=== PATIENT | female | born 1975 | race Caucasian/White ===

== ENCOUNTER 2017-10-30 12:15 | Emergency (ER) | payer SELFPAY ==
[~2017-10-30] VITALS: Ht 154.9 cm; Wt 65.0 kg
[~2017-10-30 12:15] MED LIST: AVELOX400 MG OR; CIPRO500 MG OR; LORTAB5 OR; NAPROSYN500 MG OR; NO HOME MEDS; NYQUIL OR; TAMIFLU12 MG/ML OR; ULTRAM50 M1 PO; ZOFRAN ODT4 MG OR
[2017-10-30] MEDS ORDERED: DELTASONE20 MG PO (13:32)
[2017-10-30] MEDS ORDERED: TORADOL PO (13:32)
[2017-10-30 13:53] VITALS: BP 122/86
== END 2017-10-30 13:53 | disposition home or self-care (01) | DRG 563 ==
LOC: ED 12:15
DX: S29.011A Strain of muscle and tendon of front wall of thorax, initial encounter (principal); F17.210 Nicotine dependence, cigarettes, uncomplicated; X50.0XXA Overexertion from strenuous movement or load, initial encounter

== ENCOUNTER 2019-07-22 | Day surgery (SDC) | payer BC ==
[~2019-07-22] MED LIST changes: +DELTASONE20 MG PO; +TORADOL PO
[2019-07-22 12:00] LABS: HEMATOCRIT 42.8 % (37.0-47.0); IMMATURE GRANULOCYTES 0.2 % (0.0-5.0); MEAN CELL VOLUME 91.5 fL CALC (80.0-100.0); MEAN CORPUSCULAR HGB 30.6 pG CALC (26.0-32.0); MEAN CORPUSCULAR HGB CONC 33.4 g/L CALC (32.0-36.0); NEUT# 3.27 thou/uL (2.00-7.15); RED BLOOD COUNT 4.68 mill/uL (4.20-5.60); RED CELL DISTRI WIDTH 12.4 % (11.5-15.5)
[2019-07-22 12:02] LABS: HEMOGLOBIN 14.3 g/dl (12.0-16.0)
[2019-07-22] MEDS ORDERED: ARAVA20 MG PO (12:34)
[2019-07-22] MEDS ORDERED: ATORVASTATIN CA10 MG PO (12:35)
[2019-07-22] MEDS ORDERED: BUPROPION150 M4 PO (12:35)
[2019-07-22] MEDS ORDERED: TOPIRAMATE50 MG PO (12:35)
[2019-07-22] MEDS ORDERED: TRAMADOL HCL50 MG PO (12:36)
[2019-07-22] MEDS ORDERED: OMEPRAZOLE DR40 MG PO (12:36)
[2019-07-22] MEDS ORDERED: ZOFRAN4 MG/TAB PO (12:37)
[2019-07-22] MEDS ORDERED: FIORICET PO (12:37)
[2019-07-22] MEDS ORDERED: AIMOVIG70 MG/ML IM (12:38)
[2019-07-22] MEDS ORDERED: CENTRUM ADULTS1 TAB PO (12:38)
== END 2019-07-22 14:28 | disposition home or self-care (01) | DRG 921 ==
PROVIDERS: Obstetrics & Gynecology
PROC: 0UQG7ZZ Repair Vagina, Via Natural or Artificial Opening (ICD-10-PCS; principal; 2019-07-22)
DX: T81.32XA Disruption of internal operation (surgical) wound, not elsewhere classified, initial encounter (principal); Y83.6 Removal of other organ (partial) (total) as the cause of abnormal reaction of the patient, or of later complication, without mention of misadventure at the time of the procedure; Z90.710 Acquired absence of both cervix and uterus

== ENCOUNTER 2022-07-05 06:55 | Inpatient (IN) | payer BC ==
[~2022-07-05] VITALS: Ht 154.9 cm; Wt 53.1 kg
[2022-07-05] VITALS (8 sets, daily range): BP systolic 97–111; BP diastolic 59–76
[~2022-07-05 06:55] MED LIST changes: +AIMOVIG70 MG/ML IM; +AJOVY IN; +ARAVA20 MG PO; +ATORVASTATIN CA10 MG PO; +BUPROPION150 M4 PO; +CENTRUM ADULTS1 TAB PO; +FIORICET PO; +HYDROCODONE BIT PO; +LYRICA75 MG PO; +OMEPRAZOLE DR40 MG PO; +TOPIRAMATE50 MG PO; +TRAMADOL HCL50 MG PO; +ZOFRAN4 MG/TAB PO
[2022-07-05 14:02] LABS: ANION GAP 11 (6-22 (CALC)); BUN 14 mg/dL (7-17); BUN/CREATININE RATIO 20 (12-20 (CALC)); CARBON DIOXIDE 24 mmol/l (22-30); CHLORIDE 109 mmol/l (95-108); CREATININE 0.7 mg/dL (0.5-1.0); GFR FOR AFR.AMER. > 60 ML/MIN (>=60 (CALC)); GFR OTHER RACES > 60 ML/MIN (>=60 (CALC)); POTASSIUM 4.3 mmol/l (3.5-5.1); SODIUM 140 mmol/l (137-146)
[2022-07-06] VITALS (18 sets, daily range): BP systolic 78–121; BP diastolic 61–76
[2022-07-06 06:10] LABS: ANION GAP 6 (6-22 (CALC)); BUN 16 mg/dL (7-17); BUN/CREATININE RATIO 18 (12-20 (CALC)); CARBON DIOXIDE 26 mmol/l (22-30); CHLORIDE 110 mmol/l (95-108); CREATININE 0.9 mg/dL (0.5-1.0); GFR FOR AFR.AMER. > 60 ML/MIN (>=60 (CALC)); GFR OTHER RACES > 60 ML/MIN (>=60 (CALC)); MAGNESIUM 2.1 mg/dL (1.6-2.3); POTASSIUM 4.2 mmol/l (3.5-5.1); SODIUM 138 mmol/l (137-146)
[2022-07-06 06:11] LABS: MEAN CELL VOLUME 95.5 fL CALC (80.0-100.0); MEAN CORPUSCULAR HGB 31.5 pG CALC (26.0-32.0); RED BLOOD COUNT 3.75 mill/uL (4.20-5.60)
[2022-07-06 06:13] LABS: HEMATOCRIT 35.8 % (37.0-47.0); HEMOGLOBIN 11.8 g/dl (12.0-16.0)
[2022-07-07 04:02] VITALS: BP 108/59
[2022-07-07 06:40] VITALS: BP 106/53
[2022-07-07] MEDS ORDERED: BACTRIM DS1 TAB PO (09:43)
[2022-07-07] MEDS ORDERED: OXYCODONE10 M1 PO (09:44)
== END 2022-07-07 13:27 | disposition home or self-care (01) | DRG 904 ==
LOC: ORM 06:55 → ICU 11:24 → MS2 07-06 18:34
PROVIDERS: Podiatrist Foot & Ankle Surgery; ADMIT Internal Medicine; ATTEND Internal Medicine
PROC: 0SPM04Z Removal of Internal Fixation Device from Right Metatarsal-Phalangeal Joint, Open Approach (ICD-10-PCS; principal; 2022-07-05)
PROC: 0HXMXZZ Transfer Right Foot Skin, External Approach (ICD-10-PCS; 2022-07-05)
DX: T81.31XA Disruption of external operation (surgical) wound, not elsewhere classified, initial encounter (principal); L03.115 Cellulitis of right lower limb; T81.41XA Infection following a procedure, superficial incisional surgical site, initial encounter; M06.9 Rheumatoid arthritis, unspecified; E78.5 Hyperlipidemia, unspecified; B95.7 Other staphylococcus as the cause of diseases classified elsewhere; B96.89 Other specified bacterial agents as the cause of diseases classified elsewhere; Y83.8 Other surgical procedures as the cause of abnormal reaction of the patient, or of later complication, without mention of misadventure at the time of the procedure
CPT/HCPCS: J0131; J1650; J3370